=== PATIENT | male | born 1955 | race Caucasian/White ===

== ENCOUNTER 2023-01-15 10:51 | Outpatient (CLI) | payer OTHER ==
[2023-01-15 11:43] LABS: ALBUMIN 4.2 g/dL (3.2-5.5); ALBUMIN/GLOBULIN RATIO 1.6 (1.0-2.2); BILIRUBIN,TOTAL 0.5 mg/dL (0.2-1.0); CALCIUM 9.6 mg/dL (8.5-10.3); CREATININE 0.8 mg/dL (0.6-1.3); POTASSIUM 4.3 mmol/L (3.5-4.5); TOTAL PROTEIN 6.9 g/dL (6.4-8.9)
--- NOTE | 2023-01-15 14:56 | XRAY Report ---
PROCEDURE: Chest 2 View X-Ray INDICATIONS: PNUEMOTHORAX TECHNIQUE: 2 views of the chest were acquired. COMPARISON: None. FINDINGS: Surgical changes and devices: Valvular prosthesis. Lungs and pleura: Mild blunting of the right costophrenic angle. No definite pneumothorax visualized . No focal consolidation. Mediastinum: Mediastinal contours appear normal. Heart size is normal. Bones and chest wall: No suspicious bony lesions. Overlying soft tissues appear unremarkable. IMPRESSION: Blunting of the right costophrenic angle which may be related to a small pleural effusion. Otherwise, no acute cardiopulmonary abnormalities identified. No definite pneumothorax visualized on this exam. Reviewed by: Sid Leggett MD on 01/15/2023 2:55 PM PDT Approved by: Sid Leggett MD on 01/15/2023 2:55 PM PDT Station ID: [id number]
== END 2023-01-15 10:52 | disposition home or self-care (01) ==
LOC: DI 10:51
PROVIDERS: ATTEND Registered Nurse
DX: J93.9 Pneumothorax, unspecified (principal); B35.1 Tinea unguium; Z79.01 Long term (current) use of anticoagulants; Z98.890 Other specified postprocedural states
CPT/HCPCS: 36415; 80053; 85610

== ENCOUNTER 2023-01-28 14:45 | Outpatient (CLI) | payer OTHER | END 2023-01-28 14:46 | disposition home or self-care (01) | LOC: LAB 14:45 | PROVIDERS: ATTEND Physician Assistant | DX: Z79.01 Long term (current) use of anticoagulants (principal); Z98.890 Other specified postprocedural states | CPT/HCPCS: 36416; 85610 ==

== ENCOUNTER 2023-07-07 17:02 | Outpatient (CLI) | payer OTHER ==
[2023-07-07 17:45] LABS: CHOL/HDL RATIO 3.8 (<5.0); CHOLESTEROL 175 mg/dL; HDL CHOLESTEROL 46 mg/dL; LDL CHOLESTEROL,CALCULATED 101 mg/dL; LDL/HDL RATIO 2.2 (<3.6); TRIGLYCERIDES 141 mg/dL (48-352); VLDL CHOLESTEROL 28 mg/dL
[2023-07-07 17:53] LABS: THYROID STIMULATING HORMONE 6.07 uIU/mL (0.34-5.60)
== END 2023-07-07 17:03 | disposition home or self-care (01) ==
LOC: LAB 17:02
PROVIDERS: ATTEND Internal Medicine Cardiovascular Disease
DX: E78.5 Hyperlipidemia, unspecified (principal)
CPT/HCPCS: 36415; 80061; 83721; 84439; 84443